=== PATIENT | female | born 1980 | race Caucasian/White ===

== ENCOUNTER 2016-10-02 11:06 | Inpatient (IN) | payer MEDICAID ==
[~2016-10-02] VITALS: Ht 162.6 cm; Wt 81.6 kg
[2016-10-02 11:12] VITALS: BP 129/91; PULSE 103; RESP 16; TEMP 97.3; O2SAT 97
[2016-10-02] MEDS ORDERED: HYDROmorphone 1 MG INJ. 1 MG/ML AMPUL IVP ONE (12:00)
[2016-10-02] MEDS ORDERED: ceFAZolin SODIUM 1 GM VIAL IM ONE (12:00)
[2016-10-02] MEDS ORDERED: D5W IV ONE (12:15)
[2016-10-02] MEDS ORDERED: CEFAZOLIN SODIUM IV ONE (12:15)
[2016-10-02 12:16] LABS: BASOPHILS # (AUTO) 0.1 K/uL (0.0-0.2); BASOPHILS % (AUTO) 1.4 % (0.0-2.0); EOSINOPHILS # (AUTO) 0.2 K/uL (0.0-0.4); EOSINOPHILS % (AUTO) 1.7 % (0.0-4.0); HEMATOCRIT 34.7 % (36-48); HEMOGLOBIN 11.8 g/dL (12.0-16.0); LYMPHOCYTES # (AUTO) 2.3 K/uL (1.0-5.5); LYMPHOCYTES % (AUTO) 24.6 % (20.5-51.5); MEAN CORPUSCULAR HEMOGLOBIN 31 pg (27-31); MEAN CORPUSCULAR HGB CONC 34 % (32-36); MEAN CORPUSCULAR VOLUME 90 fL (79.0-98.0); MONOCYTES # (AUTO) 0.4 K/uL (0.0-1.0); MONOCYTES % (AUTO) 4.2 % (1.7-9.3); NEUTROPHILS # (AUTO) 6.5 K/uL (1.8-7.7); NEUTROPHILS % (AUTO) 68.1 % (40.0-70.0); PLATELET COUNT (AUTO) 206 K/uL (130-430); RED BLOOD CELL COUNT(AUTO) 3.84 MIL/uL (4.2-6.2); RED CELL DISTRIBUTION WIDTH 12.6 % (9.0-15.0); WHITE BLOOD COUNT (AUTO) 9.5 K/uL (4.8-10.8)
[2016-10-02 12:40] LABS: CALCIUM 8.9 mg/dL (8.4-11.0); CREATININE 0.65 mg/dL (0.55-1.30); POTASSIUM 3.8 mmol/L (3.5-5.1)
[2016-10-02 12:41] LABS: PROTHROMBIN TIME 10.8 SECS (9.5-12.5)
[2016-10-02 14:50] VITALS: BP 135/79; PULSE 90; RESP 16; TEMP 98; O2SAT 97
[2016-10-02] MEDS: HYDROmorphone 1 MG INJ. 1 MG/ML AMPUL IVP PRN ×2 (17:30→23:26)
[2016-10-02] MEDS: VANCOMYCIN HCL 1,000 MG in NS 250 ML IV SCH (18:34)
[2016-10-02 19:00] VITALS: BP 117/72; PULSE 105; RESP 16; TEMP 96.8; O2SAT 99
[2016-10-02] MEDS: PIPERACILLIN/TAZO 3.375/DEX-IS 50 ML IV SCH ×2 (19:30→23:59)
[2016-10-02 20:00] VITALS: BP 117/72; PULSE 105; RESP 16; TEMP 96.8; O2SAT 99
[2016-10-02] MEDS: ACETAMINOPHEN 325 MG TABLET PO PRN (20:26)
[2016-10-02] MEDS: LACTOBACILLUS RHAMNOSUS GG 1 CAP CAPSULE PO SCH (20:27)
[2016-10-02 21:00] VITALS: TEMP 99.9
[2016-10-02 23:47] VITALS: BP 116/80; PULSE 108; RESP 18; TEMP 97.5; O2SAT 97
[2016-10-03] MEDS: VANCOMYCIN HCL 1,000 MG in NS 250 ML IV SCH ×2 (02:21→23:24)
[2016-10-03] MEDS: HYDROmorphone 1 MG INJ. 1 MG/ML AMPUL IVP PRN ×4 (03:19→23:18)
[2016-10-03 03:43] VITALS: BP 113/70; PULSE 87; RESP 18; TEMP 96.8; O2SAT 98
[2016-10-03] MEDS: PIPERACILLIN/TAZO 3.375/DEX-IS 50 ML IV SCH (06:45)
[2016-10-03 08:00] VITALS: BP 120/77; PULSE 86; RESP 16; TEMP 97.6; O2SAT 92
[2016-10-03 12:15] VITALS: BP 128/85; PULSE 79; RESP 18; TEMP 97.6; O2SAT 98
[2016-10-03] MEDS ORDERED: ONDANSETRON HCL 4 MG/2 ML VIAL IVP PRN (12:45)
[2016-10-03 13:38] LABS: HEMATOCRIT 33.3 % (36-48); HEMOGLOBIN 11.2 g/dL (12.0-16.0); MEAN CORPUSCULAR HEMOGLOBIN 30 pg (27-31); MEAN CORPUSCULAR HGB CONC 34 % (32-36); MEAN CORPUSCULAR VOLUME 90 fL (79.0-98.0); PLATELET COUNT (AUTO) 154 K/uL (130-430); RED BLOOD CELL COUNT(AUTO) 3.68 MIL/uL (4.2-6.2); RED CELL DISTRIBUTION WIDTH 12.3 % (9.0-15.0)
[2016-10-03 13:39] LABS: ALBUMIN 3.4 g/dL (3.4-4.8); BASOPHILS % (AUTO) 0.7 % (0.0-2.0); CALCIUM 8.6 mg/dL (8.4-11.0); CREATININE 0.58 mg/dL (0.55-1.30); EOSINOPHILS # (AUTO) 0.1 K/uL (0.0-0.4); EOSINOPHILS % (AUTO) 3.2 % (0.0-4.0); LYMPHOCYTES # (AUTO) 0.5 K/uL (1.0-5.5); LYMPHOCYTES % (AUTO) 12.1 % (20.5-51.5); MONOCYTES # (AUTO) 0.2 K/uL (0.0-1.0); MONOCYTES % (AUTO) 3.4 % (1.7-9.3); NEUTROPHILS # (AUTO) 3.7 K/uL (1.8-7.7); NEUTROPHILS % (AUTO) 80.6 % (40.0-70.0); TOTAL BILIRUBIN 0.7 mg/dL (0.0-1.0); TOTAL PROTEIN, SERUM 6.7 g/dL (6.4-8.3); WHITE BLOOD COUNT (AUTO) 4.5 K/uL (4.8-10.8)
[2016-10-03] MEDS: ACETAMINOPHEN 325 MG TABLET PO PRN ×2 (13:59)
[2016-10-03 14:18] VITALS: Ht 162.6 cm; Wt 81.6 kg
[2016-10-03] MEDS: DIPHENHYDRAMINE INJ 50 MG/ML VIAL IVP PRN ×2 (16:21→21:55)
[2016-10-03 16:22] VITALS: BP 131/83; PULSE 85; RESP 18; TEMP 98; O2SAT 99
[2016-10-03] MEDS: CLINDAMYCIN 600 MG in D5W 50 ML IV SCH ×2 (18:03→23:25)
[2016-10-03 19:00] VITALS: BP 119/56; PULSE 78; RESP 16; TEMP 96.5; O2SAT 100
[2016-10-03 20:00] VITALS: BP 119/56; PULSE 78; RESP 16; TEMP 96.5; O2SAT 100
[2016-10-03] MEDS: LACTOBACILLUS RHAMNOSUS GG 1 CAP CAPSULE PO SCH ×2 (21:00→23:19)
[2016-10-04] VITALS (8 sets, daily range): BP systolic 96–123; BP diastolic 52–83; PULSE 63–89; RESP 16–20; TEMP 97.2–99.2; O2SAT 97–99
[2016-10-04] MEDS: VANCOMYCIN HCL 1,000 MG in NS 250 ML IV SCH ×3 (02:00→18:36)
[2016-10-04] MEDS: DIPHENHYDRAMINE INJ 50 MG/ML VIAL IVP PRN ×3 (02:18→18:36)
[2016-10-04] MEDS: CLINDAMYCIN 600 MG in D5W 50 ML IV SCH ×4 (06:21→23:27)
[2016-10-04] MEDS: LACTOBACILLUS RHAMNOSUS GG 1 CAP CAPSULE PO SCH ×2 (10:46→20:57)
[2016-10-04] MEDS: HYDROmorphone 1 MG INJ. 1 MG/ML AMPUL IVP PRN ×3 (10:47→20:57)
[2016-10-04] MEDS ORDERED: MAGNESIUM CITRATE 300 ML ORAL SOLUTION PO ONE (21:45)
[2016-10-05] MEDS: DIPHENHYDRAMINE INJ 50 MG/ML VIAL IVP PRN ×4 (01:22→23:15)
[2016-10-05] MEDS: VANCOMYCIN HCL 1,000 MG in NS 250 ML IV SCH ×3 (01:27→18:35)
[2016-10-05 03:45] VITALS: BP 118/60; PULSE 62; RESP 16; TEMP 97; O2SAT 97
[2016-10-05] MEDS: CLINDAMYCIN 600 MG in D5W 50 ML IV SCH ×4 (06:21→23:14)
[2016-10-05 08:00] VITALS: BP 122/73; PULSE 87; RESP 18; TEMP 96.6; O2SAT 98
[2016-10-05] MEDS: LACTOBACILLUS RHAMNOSUS GG 1 CAP CAPSULE PO SCH ×2 (10:12→21:00)
[2016-10-05] MEDS: HYDROmorphone 1 MG INJ. 1 MG/ML AMPUL IVP PRN ×3 (10:16→23:15)
[2016-10-05 10:27] LABS: BASOPHILS % (AUTO) 0.3 % (0.0-2.0); EOSINOPHILS # (AUTO) 0.2 K/uL (0.0-0.4); HEMOGLOBIN 10.6 g/dL (12.0-16.0); LYMPHOCYTES % (AUTO) 29.2 % (20.5-51.5); MEAN CORPUSCULAR HEMOGLOBIN 30 pg (27-31); MEAN CORPUSCULAR HGB CONC 33 % (32-36); MEAN CORPUSCULAR VOLUME 89 fL (79.0-98.0); MONOCYTES # (AUTO) 0.3 K/uL (0.0-1.0); MONOCYTES % (AUTO) 8.3 % (1.7-9.3); NEUTROPHILS # (AUTO) 1.9 K/uL (1.8-7.7); NEUTROPHILS % (AUTO) 56.2 % (40.0-70.0); PLATELET COUNT (AUTO) 171 K/uL (130-430); RED BLOOD CELL COUNT(AUTO) 3.59 MIL/uL (4.2-6.2); WHITE BLOOD COUNT (AUTO) 3.4 K/uL (4.8-10.8)
[2016-10-05 10:34] LABS: CALCIUM 8.7 mg/dL (8.4-11.0); CREATININE 0.77 mg/dL (0.55-1.30); POTASSIUM 3.8 mmol/L (3.5-5.1)
[2016-10-05 10:41] LABS: ALBUMIN 2.9 g/dL (3.4-4.8); TOTAL BILIRUBIN 0.1 mg/dL (0.0-1.0); TOTAL PROTEIN, SERUM 6.7 g/dL (6.4-8.3)
[2016-10-05 12:00] VITALS: BP 96/44; PULSE 62; RESP 20; TEMP 97.6; O2SAT 97
[2016-10-05 17:17] VITALS: BP 115/64; PULSE 80; RESP 20; TEMP 97.5; O2SAT 97
[2016-10-05 20:27] VITALS: BP 122/71; PULSE 85; RESP 18; TEMP 98.2; O2SAT 96
[2016-10-06 00:48] VITALS: BP 113/60; PULSE 78; RESP 18; TEMP 97.2; O2SAT 98
[2016-10-06] MEDS: VANCOMYCIN HCL 1,000 MG in NS 250 ML IV SCH ×2 (01:47→10:00)
[2016-10-06] MEDS: DIPHENHYDRAMINE INJ 50 MG/ML VIAL IVP PRN ×2 (03:20→08:12)
[2016-10-06] MEDS: HYDROmorphone 1 MG INJ. 1 MG/ML AMPUL IVP PRN ×2 (03:20→08:11)
[2016-10-06 03:50] VITALS: BP 108/56; PULSE 68; RESP 18; TEMP 98; O2SAT 100
[2016-10-06] MEDS: CLINDAMYCIN 600 MG in D5W 50 ML IV SCH ×2 (06:55→12:00)
[2016-10-06 07:55] VITALS: BP 118/54; PULSE 82; RESP 18; TEMP 97.7; O2SAT 98
[2016-10-06] MEDS: LACTOBACILLUS RHAMNOSUS GG 1 CAP CAPSULE PO SCH (08:12)
[2016-10-06 11:33] VITALS: BP 119/60; PULSE 80; RESP 17; TEMP 97; O2SAT 99
[2016-10-06 15:12] VITALS: BP 119/60; PULSE 80; RESP 17; TEMP 97; O2SAT 99
[2016-10-06] MEDS ORDERED: CLIN-77 PO ×2 (15:20→15:21)
== END 2016-10-06 15:50 | disposition home or self-care (01) | DRG 383 ==
LOC: SED 11:06 → SMU 14:36
PROVIDERS: ADMIT Internal Medicine Hospice and Palliative Medicine; ATTEND Internal Medicine Hospice and Palliative Medicine
PROC: 0H98XZZ Drainage of Buttock Skin, External Approach (ICD-10-PCS; principal; 2016-10-02)
DX: L02.31 Cutaneous abscess of buttock (principal); B95.62 Methicillin resistant Staphylococcus aureus infection as the cause of diseases classified elsewhere; Z88.8 Allergy status to other drugs, medicaments and biological substances; E66.9 Obesity, unspecified; Z68.30 Body mass index [BMI] 30.0-30.9, adult; D64.9 Anemia, unspecified; L03.317 Cellulitis of buttock
CPT/HCPCS: 36415; 80048; 80053; 80202-TC; 85025; 85610-TC; 87040-TC; 96365; 96375; 99285; J0690; J1170; J1200; J2405; J2543; J3370; J3490; J7040; J7050; J7060; J7120

== ENCOUNTER 2023-08-17 19:15 | Emergency (ER) | payer MEDICAID ==
[~2023-08-17] VITALS: Ht 162.6 cm; Wt 78.5 kg
[~2023-08-17 19:15] MED LIST: CLIN-142 PO
[2023-08-17 19:48] VITALS: BP_SYST 139; PULSE 86; RESP 20; TEMP 97.7; O2SAT 100
[2023-08-17 20:53] LABS: BILIRUBIN,URINE NEGATIVE (NEGATIVE); BLOOD, URINE NEGATIVE (NEGATIVE); CLARITY/URINE CLEAR (CLEAR); COLOR,URINE YELLOW (YELLOW); GLUCOSE,URINE NEGATIVE (NEGATIVE); KETONES,URINE NEGATIVE (NEGATIVE); LEUKOCYTE ESTERASE ,URINE NEGATIVE (NEGATIVE); NITRITE, URINE NEGATIVE (NEGATIVE); PROTEIN URINE NEGATIVE (NEGATIVE); UROBILINOGEN,URINE 0.2 (0.2-1.0)
[2023-08-17 20:55] LABS: BASOPHILS # (AUTO) 0.1 K/uL (0.0-0.2); BASOPHILS % (AUTO) 1.1 % (0.0-2.0); EOSINOPHILS # (AUTO) 0.1 K/uL (0.0-0.4); EOSINOPHILS % (AUTO) 1.5 % (0.0-4.0); HEMOGLOBIN 10.7 g/dL (12.0-16.0); LYMPHOCYTES # (AUTO) 1.7 K/uL (1.0-5.5); LYMPHOCYTES % (AUTO) 33.9 % (20.5-51.5); MEAN CORPUSCULAR HEMOGLOBIN 27 pg (27-31); MEAN CORPUSCULAR HGB CONC 31 % (32-36); MEAN CORPUSCULAR VOLUME 85 fL (79.0-98.0); MONOCYTES # (AUTO) 0.3 K/uL (0.0-1.0); MONOCYTES % (AUTO) 5.6 % (1.7-9.3); NEUTROPHILS # (AUTO) 2.8 K/uL (1.8-7.7); NEUTROPHILS % (AUTO) 57.9 % (40.0-70.0); PLATELET COUNT (AUTO) 219 K/uL (130-430); RED BLOOD CELL COUNT(AUTO) 4.02 MIL/uL (4.2-6.2); RED CELL DISTRIBUTION WIDTH 19.4 % (9.0-15.0); WHITE BLOOD COUNT (AUTO) 4.9 K/uL (4.8-10.8)
[2023-08-17 21:06] LABS: ANION GAP 7 (5-15); CALCIUM 8.6 mg/dL (8.4-11.0); CARBON DIOXIDE 28 mmol/L (23-29); CHLORIDE 105 mmol/L (98-107); CREATININE 0.68 mg/dL (0.55-1.30); GFR AFRICAN AMERICAN 121 mL/min (>90); GFR NON AFRICAN-AMERICAN 100 mL/min (>90); GLUCOSE 102 mg/dL (74-106); SODIUM SERUM 140 mmol/L (136-145); UREA NITROGEN, BLOOD 14 mg/dL (8-21)
[2023-08-17 21:10] LABS: ALANINE AMINOTRANSFERASE 20 U/L (12-78); ALBUMIN 3.3 g/dL (3.4-4.8); ASPARTATE AMINOTRANSFERASE 13 U/L (10-37); BILIRUBIN,DIRECT < 0.1 mg/dL (0.0-0.3); LIPASE 54 U/L (16-77); TOTAL BILIRUBIN 0.1 mg/dL (0.0-1.0); TOTAL PROTEIN, SERUM 6.4 g/dL (6.4-8.3)
== END 2023-08-17 22:30 | disposition left against medical advice (07) ==
LOC: SED 19:15
DX: R51.9 Headache, unspecified (principal); R11.10 Vomiting, unspecified; Z53.21 Procedure and treatment not carried out due to patient leaving prior to being seen by health care provider
CPT/HCPCS: 36415; 80048; 80076; 81001; 81003; 83690; 84443; 85025; 86870; 86886; 86900; 86901; 99281

== ENCOUNTER 2024-01-02 15:05 | Emergency (ER) | payer MEDICAID ==
[~2024-01-02] VITALS: Ht 162.6 cm; Wt 68.0 kg
[2024-01-02 15:05] VITALS: BP_SYST 142; PULSE 87; RESP 18; TEMP 97.2; O2SAT 99
[2024-01-02 15:46] LABS: BASOPHILS # (AUTO) 0.1 K/uL (0.0-0.2); BASOPHILS % (AUTO) 1.1 % (0.0-2.0); EOSINOPHILS # (AUTO) 0.1 K/uL (0.0-0.4); EOSINOPHILS % (AUTO) 1.4 % (0.0-4.0); HEMATOCRIT 36.9 % (36-48); HEMOGLOBIN 12.5 g/dL (12.0-16.0); LYMPHOCYTES # (AUTO) 1.9 K/uL (1.0-5.5); LYMPHOCYTES % (AUTO) 35.4 % (20.5-51.5); MEAN CORPUSCULAR HEMOGLOBIN 31 pg (27-31); MEAN CORPUSCULAR HGB CONC 34 % (32-36); MEAN CORPUSCULAR VOLUME 91 fL (79.0-98.0); MONOCYTES # (AUTO) 0.2 K/uL (0.0-1.0); MONOCYTES % (AUTO) 4.5 % (1.7-9.3); NEUTROPHILS # (AUTO) 3.1 K/uL (1.8-7.7); NEUTROPHILS % (AUTO) 57.6 % (40.0-70.0); PLATELET COUNT (AUTO) 208 K/uL (130-430); RED BLOOD CELL COUNT(AUTO) 4.07 MIL/uL (4.2-6.2); RED CELL DISTRIBUTION WIDTH 15.3 % (9.0-15.0); WHITE BLOOD COUNT (AUTO) 5.4 K/uL (4.8-10.8)
[2024-01-02] MEDS: IBUPROFEN 800 MG TABLET PO ONE (15:47)
[2024-01-02 15:58] LABS: SERUM HCG (QUALITATIVE) NEGATIVE (NEGATIVE)
[2024-01-02 16:14] LABS: ANION GAP 8 (5-15); CALCIUM 8.1 mg/dL (8.4-11.0); CARBON DIOXIDE 27 mmol/L (23-29); CHLORIDE 106 mmol/L (98-107); FREE T4 (FREE THYROXINE) 0.9 ng/dl (0.8-1.5); GFR AFRICAN AMERICAN 101 mL/min (>90); GLUCOSE 104 mg/dL (74-106); POTASSIUM 3.7 mmol/L (3.5-5.1); SODIUM SERUM 141 mmol/L (136-145); THYROID STIMULATING HORMONE 1.66 uIu/mL (0.36-3.74); UREA NITROGEN, BLOOD 16 mg/dL (8-21)
[2024-01-02 16:18] LABS: GFR NON AFRICAN-AMERICAN 83 mL/min (>90)
[2024-01-02 16:57] VITALS: BP_SYST 129; PULSE 71; RESP 18; TEMP 97.2; O2SAT 99
== END 2024-01-02 15:30 | disposition home or self-care (01) ==
LOC: SED 15:05
DX: R07.89 Other chest pain (principal); R00.2 Palpitations; Z88.8 Allergy status to other drugs, medicaments and biological substances; Z79.899 Other long term (current) drug therapy
CPT/HCPCS: 36415; 80048; 83880; 84439; 84443; 84484; 84703; 85025; 93005; 99284